=== PATIENT | male | born 1985 | race African-American/Black ===

== ENCOUNTER 2017-07-18 19:40 | Inpatient (IN) | payer MEDICAID ==
[~2017-07-18] VITALS: Ht 175.3 cm; Wt 88.5 kg
[2017-07-19 00:04] VITALS: BP 132/82
[2017-07-19 08:14] VITALS: BP 106/65
[2017-07-19] MEDS ORDERED: IBUPROFEN 600 MG TABLET PO PRN (08:30)
[2017-07-19] MEDS ORDERED: CloNIDine HCL 0.1 MG TABLET PO PRN (08:30)
[2017-07-19] MEDS ORDERED: PETROLATUM,WHITE 71 GM JELLY TP PRN (08:30)
[2017-07-19] MEDS ORDERED: BENZOCAINE/MENTHOL LOZENGE MM PRN (08:30)
[2017-07-19] MEDS ORDERED: BACITRACIN 28.4 GM OINTMENT TP PRN (08:30)
[2017-07-19] MEDS ORDERED: MAG HYDROX/AL HYDROX/SIMETH ES 30 ML SUSPENSION UDCUP PO PRN (08:30)
[2017-07-19] MEDS ORDERED: ONDANSETRON HCL 4 MG TABLET PO PRN (08:30)
[2017-07-19] MEDS ORDERED: LOPERAMIDE HCL 2 MG CAPSULE PO PRN (08:30)
[2017-07-19] MEDS ORDERED: ALBUTEROL SULFATE HFA 90 MCG/PUFF 8 GM INHALER IH PRN (08:30)
[2017-07-19] MEDS ORDERED: ACETAMINOPHEN 325 MG TABLET PO PRN (08:30)
[2017-07-19] MEDS ORDERED: MAGNESIUM HYDROXIDE SUSPENSION 30 ML UDCUP PO PRN (08:30)
[2017-07-19] MEDS ORDERED: ALBU8HFA IH (15:00)
[2017-07-19] MEDS ORDERED: CLON-570 PO (15:00)
[2017-07-19] MEDS ORDERED: LOPE2 PO (15:00)
[2017-07-19] MEDS ORDERED: ZOLP10TA7 PO (15:00)
[2017-07-19] MEDS ORDERED: MOM30 PO (15:00)
[2017-07-19] MEDS ORDERED: LORA2TAB2 PO (15:00)
[2017-07-19] MEDS ORDERED: TUBERCULIN, PURIFIED PROTEIN DERIVATIVE 5 TU/0.1 ML SYG ID ONE (17:00)
[2017-07-19 19:04] VITALS: BP 109/67
[2017-07-20 00:47] VITALS: BP 112/69
[2017-07-20 08:25] VITALS: BP 108/59
[2017-07-20 16:00] VITALS: BP 127/77
[2017-07-20] MEDS: LORazepam 2 MG TABLET PO PRN (18:12)
[2017-07-20] MEDS: GuaiFENesin/D-METHORPHAN [SUGAR-FREE] 200-20MG/10 ML SYRUP UDCUP PO PRN (19:15)
[2017-07-20] MEDS: ZOLPIDEM TARTRATE 10 MG TABLET PO PRN (20:37)
[2017-07-20] MEDS: OLANZapine 5 MG TABLET PO SCH (20:37)
[2017-07-21 06:29] VITALS: BP 138/68
[2017-07-21 08:39] VITALS: BP 117/65
[2017-07-21] MEDS: LORazepam 2 MG TABLET PO PRN ×2 (12:16→17:22)
[2017-07-21] MEDS: GuaiFENesin/D-METHORPHAN [SUGAR-FREE] 200-20MG/10 ML SYRUP UDCUP PO PRN ×2 (12:16→20:57)
[2017-07-21 16:05] VITALS: BP 110/68
[2017-07-21] MEDS: OLANZapine 5 MG TABLET PO SCH (20:57)
[2017-07-21] MEDS: ZOLPIDEM TARTRATE 10 MG TABLET PO PRN (20:57)
[2017-07-22 06:16] VITALS: BP 102/63
[2017-07-22 08:28] VITALS: BP 118/65
[2017-07-22] MEDS: LORazepam 2 MG TABLET PO PRN (08:30)
[2017-07-22] MEDS: GuaiFENesin/D-METHORPHAN [SUGAR-FREE] 200-20MG/10 ML SYRUP UDCUP PO PRN (08:30)
[2017-07-22] MEDS ORDERED: OLAN5TAB27 PO (09:51)
[2017-07-22] MEDS ORDERED: OLAN5TAB2 PO (11:29)
== END 2017-07-22 15:00 | disposition home or self-care (01) | DRG 750 ==
LOC: EDSTATUS 19:41 → B3A 22:04
PROVIDERS: ADMIT Psychiatry & Neurology Child & Adolescent Psychiatry; ATTEND Psychiatry & Neurology Child & Adolescent Psychiatry
DX: F25.1 Schizoaffective disorder, depressive type (principal); R45.851 Suicidal ideations; F14.10 Cocaine abuse, uncomplicated; F15.10 Other stimulant abuse, uncomplicated; R05 Cough; F17.200 Nicotine dependence, unspecified, uncomplicated; F41.9 Anxiety disorder, unspecified; G47.00 Insomnia, unspecified; K59.00 Constipation, unspecified; Z56.0 Unemployment, unspecified; Z72.89 Other problems related to lifestyle; Z79.51 Long term (current) use of inhaled steroids; Z79.899 Other long term (current) drug therapy; Z71.6 Tobacco abuse counseling; Z91.5 Personal history of self-harm; Z71.51 Drug abuse counseling and surveillance of drug abuser; Z71.41 Alcohol abuse counseling and surveillance of alcoholic; Z87.890 Personal history of sex reassignment
CPT/HCPCS: 87081; J3535

== ENCOUNTER 2017-07-19 14:29 | Emergency (ER) | payer MEDICAID ==
[~2017-07-19] VITALS: Ht 172.7 cm; Wt 84.1 kg
[2017-07-19] MEDS ORDERED: ALBU8HFA IH (15:00)
[2017-07-19] MEDS ORDERED: LORA2TAB2 PO (15:00)
[2017-07-19] MEDS ORDERED: MOM30 PO (15:00)
[2017-07-19] MEDS ORDERED: LOPE2 PO (15:00)
[2017-07-19] MEDS ORDERED: ZOLP10TA7 PO (15:00)
[2017-07-19] MEDS ORDERED: CLON-570 PO (15:00)
[2017-07-19 16:13] VITALS: BP 124/71
== END 2017-07-19 17:08 | disposition home or self-care (01) ==
LOC: EMS 14:29
DX: J98.9 Respiratory disorder, unspecified (principal); E11.9 Type 2 diabetes mellitus without complications; I10 Essential (primary) hypertension; F17.210 Nicotine dependence, cigarettes, uncomplicated
CPT/HCPCS: 99285

== ENCOUNTER 2018-08-26 00:11 | Emergency (ER) | payer MEDICAID ==
[~2018-08-26] VITALS: Ht 172.7 cm; Wt 99.0 kg
[~2018-08-26 00:11] MED LIST: OLAN5TAB2 PO; OLAN5TAB27 PO
[2018-08-26] MEDS ORDERED: VENL25TA47 PO (01:52)
[2018-08-26 02:06] LABS: BASOPHILS % (AUTO) 0.7 % (0.0-2.0); EOSINOPHILS % (AUTO) 0.1 % (1.0-6.0); HEMATOCRIT 41.3 % (41-53); HEMOGLOBIN 13.6 g/dL (13.5-17.5); LYMPHOCYTES # (AUTO) 1.8 K/uL (1.0-4.8); MEAN CORPUSCULAR HEMOGLOBIN 32.8 pg (26.0-34.0); MEAN CORPUSCULAR VOLUME 99 fL (80-100); MONOCYTES # (AUTO) 0.5 K/uL (0.1-1.0); MONOCYTES % (AUTO) 6.8 % (2.0-9.0); NEUTROPHILS # (AUTO) 5.4 K/uL (1.8-7.7); NEUTROPHILS % (AUTO) 69.4 % (40.0-70.0); PLATELET COUNT (AUTO) 277 K/uL (150-450); RED BLOOD CELL COUNT(AUTO) 4.16 MIL/uL (4.50-5.90); RED CELL DISTRIBUTION WIDTH 13.9 % (11.5-14.5)
[2018-08-26 02:16] LABS: ANION GAP 8 mmol/L (8-16); CALCIUM, TOTAL 9.4 mg/dL (8.8-10.5); CARBON DIOXIDE 29 mmol/L (22-29); CHLORIDE 100 mmol/L (98-107); CREATININE 1.12 mg/dL (0.60-1.30); GLOMERULAR FILTR. RATE CALC > 60 mL/min (>60); GLUCOSE,RANDOM 88 mg/dL (70-110); POTASSIUM 3.7 mmol/L (3.5-5.1); SODIUM SERUM 137 mmol/L (136-145); UREA NITROGEN, BLOOD 8 mg/dL (7-18)
[2018-08-26 02:20] LABS: ALANINE AMINOTRANSFERASE 18 U/L (12-78); ALKALINE PHOSPHATASE 52 U/L (46-116); ASPARTATE AMINOTRANSFERASE 19 U/L (15-37); BILIRUBIN,TOTAL 0.6 mg/dL (0.1-1.0); TOTAL PROTEIN, SERUM 7.9 g/dL (6.4-8.2)
[2018-08-26 04:24] LABS: AMPHET/METH SCREEN,URINE POSITIVE (NEGATIVE); BARBITURATE SCREEN, URINE NEGATIVE (NEGATIVE); BENZODIAZEPINES SCREEN,URINE NEGATIVE (NEGATIVE); CANNABINOID SCREEN,URINE POSITIVE (NEGATIVE); COCAINE SCREEN,URINE NEGATIVE (NEGATIVE); METHADONE SCREEN, URINE NEGATIVE (NEGATIVE); OPIATE SCREEN,URINE NEGATIVE (NEGATIVE)
[2018-08-26 04:33] LABS: PHENCYCLIDINE SCREEN,URINE NEGATIVE (NEGATIVE)
[2018-08-26 05:00] VITALS: BP 116/79
== END 2018-08-26 05:19 | disposition home or self-care (01) ==
LOC: EMS 00:14
DX: F31.9 Bipolar disorder, unspecified (principal); R45.851 Suicidal ideations; F11.90 Opioid use, unspecified, uncomplicated; F17.210 Nicotine dependence, cigarettes, uncomplicated
CPT/HCPCS: 36415; 80053; 80307; 85025; 99285; 99406; G0480